=== PATIENT | female | born 1995 | race Caucasian/White ===

== ENCOUNTER 2019-03-12 20:12 | Inpatient (IN) ==
[2019-03-12] MEDS ORDERED: PROMETHAZINE 25 MG/1 ML VIAL IM PRN (22:33)
[2019-03-12] MEDS ORDERED: LACTATED RINGERS 1,000 ML IV SCH (23:00)
[2019-03-13] MEDS: ONDANSETRON 4 MG/2 ML VIAL IV PRN ×2 (02:12→14:56)
[2019-03-13] MEDS: ACETAMINOPHEN 500 MG TABLET PO PRN ×4 (02:27→22:29)
[2019-03-13 05:09] LABS: Basophils % 0.2 % (0.0-0.8); Hematocrit 25.9 VOL% (35.7-47.0); Hemoglobin 8.3 GM/DL (12.0-16.0); Immature Granulocytes % 1.1 %; Immature Granulocytes Absolute 0.19 #; Lymphocytes # 0.7 10*3/uL (1.4-4.0); Lymphocytes % 3.9 % (21.3-54.2); Mean Corpuscular Volume 90.2 FL (87-102); Mean Platelet Volume 11.2 FL (9.6-12.0); Monocytes % 10.3 % (1.7-12.7); Neutrophils % 84.5 % (38.7-73.9); Platelet Count 149 T/CUMM (130-400); Red Blood Count 2.87 MC/CUMM (3.8-5.5); Red Cell Distribution Width 13.9 % (9.3-17.3); White Blood Count 17.4 T/CUMM (4-12)
[2019-03-13 05:25] LABS: Bilirubin,Total 0.9 MG/DL (0.2-1.0); Calcium 8.2 MG/DL (8.5-10.1); Osmolality,Calculated 272.5 MOS/KG (273-304); Total Protein 5.1 G/DL (6.4-8.3)
[2019-03-13 06:42] LABS: Anisocytosis 1+; Band Neutrophils 6 % (0-10); Lymphocytes 4 % (20-55); Platelet Estimate Adequate; Segmented Neutrophils 83 % (50-85); Total Cells Counted 100
[2019-03-13] MEDS: POTASSIUM CHLORIDE INJ 40 MEQ in LACTATED RINGERS 1,000 ML IV SCH ×2 (08:34→17:08)
[2019-03-13] MEDS: cefTRIAXone 1,000 MG in SYRINGE 1 EACH IV SCH (18:16)
[2019-03-14] MEDS: POTASSIUM CHLORIDE INJ 40 MEQ in LACTATED RINGERS 1,000 ML IV SCH (04:07)
[2019-03-14 05:44] LABS: Albumin 1.9 G/DL (3.4-5.0); Bilirubin,Total 0.8 MG/DL (0.2-1.0); Calcium 8.5 MG/DL (8.5-10.1); Osmolality,Calculated 277.1 MOS/KG (273-304); Total Protein 5.1 G/DL (6.4-8.3)
[2019-03-14] MEDS: ACETAMINOPHEN 500 MG TABLET PO PRN ×2 (06:30→17:20)
[2019-03-14] MEDS: cefTRIAXone 1,000 MG in SYRINGE 1 EACH IV SCH (17:18)
[2019-03-15] MEDS: ACETAMINOPHEN 500 MG TABLET PO PRN (05:19)
[2019-03-15 09:09] LABS: Basophils % 0.2 % (0.0-0.8); Eosinophils # 0.1 10*3/uL (0.0-0.87); Eosinophils % 0.4 % (0.00-10.9); Hematocrit 27.9 VOL% (35.7-47.0); Hemoglobin 8.7 GM/DL (12.0-16.0); Immature Granulocytes % 1.1 %; Immature Granulocytes Absolute 0.15 #; Lymphocytes # 1.7 10*3/uL (1.4-4.0); Lymphocytes % 12.1 % (21.3-54.2); Mean Corpuscular HGB Conc 31.2 GM/DL (32-36); Mean Corpuscular Volume 90.9 FL (87-102); Mean Platelet Volume 9.9 FL (9.6-12.0); Monocytes % 9.7 % (1.7-12.7); Neutrophils % 76.5 % (38.7-73.9); Platelet Count 209 T/CUMM (130-400); Red Blood Count 3.07 MC/CUMM (3.8-5.5); Red Cell Distribution Width 14.2 % (9.3-17.3); White Blood Count 13.9 T/CUMM (4-12)
[2019-03-15 11:56] VITALS: BP 87/53
[2019-03-15] MEDS ORDERED: cefTRIAXone 1,000 MG in SYRINGE 1 EACH IV ONE (12:00)
== END 2019-03-15 12:55 | disposition home or self-care (01) | DRG 833 ==
LOC: N.OB
PROVIDERS: ADMIT Obstetrics & Gynecology; ATTEND Obstetrics & Gynecology

== ENCOUNTER 2019-07-16 06:38 | Inpatient (IN) ==
[2019-07-16] MEDS ORDERED: ONDANSETRON 4 MG/2 ML VIAL IV PRN (07:05)
[2019-07-16] MEDS ORDERED: MEPERIDINE 50 MG/1 ML VIAL IM PRN (07:05)
[2019-07-16] MEDS ORDERED: CARBOPROST TROMETHAMINE 250 MCG/ML AMP IM PRN (07:05)
[2019-07-16] MEDS ORDERED: BUTORPHANOL 2 MG/ML VIAL IV PRN (07:05)
[2019-07-16] MEDS ORDERED: LIDOCAINE 1% 50 ML VIAL MISC INJ ONE (07:05)
[2019-07-16] MEDS ORDERED: miSOPROStoL 200 MCG TABLET VAG PRN (07:05)
[2019-07-16] MEDS ORDERED: AMPICILLIN INJ 2,000 MG in SODIUM CHLORIDE 0.9% 100 ML IV ONE (07:09)
[2019-07-16] MEDS ORDERED: LACTATED RINGERS 1,000 ML IV ONE (07:15)
[2019-07-16] MEDS ORDERED: ePHEDrine 50 MG/ML AMP IV PRN (07:15)
[2019-07-16] MEDS ORDERED: CITRIC ACID/SODIUM CITRATE 30 ML UDCUP PO ONE (07:15)
[2019-07-16] MEDS ORDERED: FAMOTIDINE 20 MG/2 ML VIAL IV ONE (07:15)
[2019-07-16] MEDS ORDERED: NALOXONE 0.4 MG/ML VIAL IV PRN (07:16)
[2019-07-16] MEDS ORDERED: PROMETHAZINE 25 MG/1 ML VIAL IM ONE (07:16)
[2019-07-16] MEDS ORDERED: hydrOXYzine HCL 25 MG/1 ML VIAL IM PRN (07:16)
[2019-07-16] MEDS ORDERED: diphenhydrAMINE 50 MG/1 ML VIAL IV PRN ×2 (07:16)
[2019-07-16] MEDS ORDERED: LACTATED RINGERS 250 ML IV PRN (07:16)
[2019-07-16 07:36] LABS: Basophils # 0.1 10*3/uL (0.0-0.2); Basophils % 0.3 % (0.0-0.8); Eosinophils % 0.1 % (0.00-10.9); Hematocrit 37.7 VOL% (35.7-47.0); Hemoglobin 12.1 GM/DL (12.0-16.0); Immature Granulocytes % 0.9 %; Immature Granulocytes Absolute 0.15 #; Lymphocytes # 1.8 10*3/uL (1.4-4.0); Lymphocytes % 10.5 % (21.3-54.2); Mean Corpuscular HGB Conc 32.1 GM/DL (32-36); Mean Corpuscular Volume 83.2 FL (87-102); Mean Platelet Volume 12.7 FL (9.6-12.0); Monocytes % 6.9 % (1.7-12.7); Neutrophils % 81.3 % (38.7-73.9); Platelet Count 187 T/CUMM (130-400); Red Blood Count 4.53 MC/CUMM (3.8-5.5); Red Cell Distribution Width 14.3 % (9.3-17.3); White Blood Count 17.4 T/CUMM (4-12)
[2019-07-16] MEDS: LACTATED RINGERS 1,000 ML IV SCH ×2 (07:43→12:38)
[2019-07-16] MEDS: fentaNYL 2 MCG/ROPIV 0.2% EPID 100 ML EPIDURAL SCH ×2 (08:04→16:44)
[2019-07-16 08:21] LABS: Albumin 2.8 G/DL (3.4-5.0); Bilirubin,Total 0.4 MG/DL (0.2-1.0); Total Protein 7.3 G/DL (6.4-8.3)
[2019-07-16 09:07] LABS: Amorphous Crystals,Urine Occasional /HPF (Few); Apearance,Urine CLEAR (Clear); Bilirubin,Urine Negative (Negative); Blood, Urine Negative (Negative); Glucose,Urine (UA) Negative (Negative); Ketones,Urine Negative (Negative); Mucus,Urine Occasional /LPF (Occasional); Nitrite,Urine Negative (Negative); Protein,Urine Negative; RBC,Urine 1 /HPF (0-4); Urine Color Straw (Yellow); Urine Specific Gravity 1.009 (1.001-1.035); Urine Urobilinogen < 2.0 EU/DL (0.2-1.0); WBC,Urine <1 /HPF (0-6)
[2019-07-16] MEDS ORDERED: METHYLERGONOVINE 0.2 MG/1 ML AMP IM PRN (10:13)
[2019-07-16] MEDS: AMPICILLIN INJ 1,000 MG in SODIUM CHLORIDE 0.9% 100 ML IV SCH ×2 (11:49→15:35)
[2019-07-16] MEDS ORDERED: OXYTOCIN/LR 20 UNIT/1,000 ML BAG IV SCH (12:30)
[2019-07-16] MEDS ORDERED: TRANEXAMIC ACID 1,000 MG/10 ML VIAL ONE (17:08)
[2019-07-16] MEDS ORDERED: LIDOCAINE 1% 50 ML VIAL ONE (18:02)
[2019-07-16] MEDS ORDERED: OXYTOCIN/LR 20 UNIT/1,000 ML BAG IV ONE (21:10)
[2019-07-16] MEDS: IBUPROFEN 800 MG TABLET PO PRN (22:19)
[2019-07-17 05:56] LABS: Basophils % 0.3 % (0.0-0.8); Eosinophils % 0.1 % (0.00-10.9); Hematocrit 30.4 VOL% (35.7-47.0); Hemoglobin 9.5 GM/DL (12.0-16.0); Immature Granulocytes % 0.7 %; Lymphocytes # 1.9 10*3/uL (1.4-4.0); Lymphocytes % 14.4 % (21.3-54.2); Mean Corpuscular HGB Conc 31.3 GM/DL (32-36); Mean Corpuscular Volume 84.7 FL (87-102); Mean Platelet Volume 12.1 FL (9.6-12.0); Monocytes % 9.9 % (1.7-12.7); Neutrophils % 74.6 % (38.7-73.9); Platelet Count 118 T/CUMM (130-400); Red Blood Count 3.59 MC/CUMM (3.8-5.5); White Blood Count 13.5 T/CUMM (4-12)
[2019-07-17] MEDS: BENZOCAINE 20%/MENTHOL 0.5% SPRAY 56 GM CAN TOP PRN (07:41)
[2019-07-17] MEDS: IBUPROFEN 800 MG TABLET PO PRN ×2 (07:41→17:59)
[2019-07-17] MEDS: DOCUSATE SODIUM 100 MG CAPSULE PO SCH ×2 (08:36→20:31)
[2019-07-17] MEDS ORDERED: SERTRALINE 50 MG TABLET PO SCH (21:00)
[2019-07-18] MEDS: IBUPROFEN 800 MG TABLET PO PRN ×2 (00:11→06:25)
[2019-07-18 07:24] VITALS: BP 130/82
[2019-07-18] MEDS ORDERED: INFLUENZA VIRUS VACCINE 0.5 ML SYRINGE IM ONE (08:00)
[2019-07-18] MEDS: DOCUSATE SODIUM 100 MG CAPSULE PO SCH (08:46)
[2019-07-18] MEDS ORDERED: DIPH/TET/ACEL PERT BOOSTER VACCINE 0.5 ML VIAL IM ONE (09:49)
[2019-07-18] MEDS: BENZOCAINE 20%/MENTHOL 0.5% SPRAY 56 GM CAN TOP PRN (10:13)
== END 2019-07-18 12:10 | disposition home or self-care (01) | DRG 807 ==
LOC: N.LDOUT 06:38 → N.LD 06:39 → N.OB 21:24
PROVIDERS: ADMIT Obstetrics & Gynecology; ATTEND Obstetrics & Gynecology